=== PATIENT | female | born 2000 | race Two or more races ===

== ENCOUNTER 2021-05-23 07:56 | Inpatient (IN) | payer OTHER ==
[~2021-05-23] VITALS: Ht 152.4 cm; Wt 80.0 kg
--- NOTE | 2021-05-23 08:05 | NUR ---
SE RECIBE PACIENTE PEDIATRICA ALERTA Y ORIENTADA X3 ACOMPANADA DE PAPA. PTE REFIERE TENER DOLOR ABDOMINAL ANNABELLE DESDE HOY EN LA MADRUGADA. PACIENTE NO CULVER PRESENTADO VOMITOS NI DIARREAS CARMEN PRESENTA NAUSEAS, AL MOMENTO DEL TRAIGE NO PRESENTA FIEBRE. SE MONITOREAN S/V Y SE UBICA EN BLANCA PEDIATRICA.
--- NOTE | 2021-05-23 08:27 | NUR ---
SE LE ORIENTA A LA PACIENTE SOBRE LAS ORDENES MEDICAS, REFIERE ENTEDER LAS MISMAS. SE CANALIZA Y SE LE COLOCA LOS IVF'S, SE LE SILVER LAS MUETRAS DE JALEN, SE LE ADMINISTRAN LOS MEDICAMENTOS Y SE LE REALIZA CT ABDOMINLA Y PELVICO, ISSAC LAS ORDENES MEDICAS.
[2021-05-25] MEDS ORDERED: BUPROPION XL300 MG (15:50)
[2021-05-25] MEDS ORDERED: BUPROPION XL150 MG (15:50)
[2021-05-25] MEDS ORDERED: TRI-SPRINTEC T1 EACH (15:50)
== END 2021-05-27 10:36 | disposition home or self-care (01) | DRG 395 ==
LOC: EMR PED 07:56 → PED 18:38
PROVIDERS: ADMIT Student in an Organized Health Care Education/Training Program; ATTEND Student in an Organized Health Care Education/Training Program
PROC: BW2110Z Computerized Tomography (CT Scan) of Abdomen and Pelvis using Low Osmolar Contrast, Unenhanced and Enhanced (ICD-10-PCS; principal; 2021-05-23)
PROC: BW4GZZZ Ultrasonography of Pelvic Region (ICD-10-PCS; 2021-05-25)
PROC: BW40ZZZ Ultrasonography of Abdomen (ICD-10-PCS; 2021-05-25)
DX: I88.0 Nonspecific mesenteric lymphadenitis (principal); E87.6 Hypokalemia; K82.4 Cholesterolosis of gallbladder; Z20.822 Contact with and (suspected) exposure to COVID-19